=== PATIENT | female | born 1965 | race Caucasian/White ===

== ENCOUNTER 2018-05-29 12:07 | Emergency (ER) | payer OTHER, SELFPAY ==
[2018-05-29 12:08] VITALS: BP 136/79; PULSE 58; RESP 16; TEMP 36.6; O2SAT 100; BMI 29.3
--- NOTE | 2018-05-29 12:26 | RAD_ITS ---
STUDY: X-RAY CHEST REASON FOR EXAM: Female, 52 years old. Vertigo. TECHNIQUE: Single AP portable upright view of the chest. COMPARISON: None. FINDINGS: The lungs are clear and expanded. There is no demonstrated pleural abnormality. Normal size heart. Normal mediastinum and sarah. Normal visualized pulmonary arteries. Normal visualized aortic arch and descending thoracic aorta. Normal visualized thoracic spine. Normal visualized ribs, clavicles, and shoulders. There is no demonstrated abnormality of the visualized soft tissue structures of the upper abdomen. RAD/Chest 1 View (Portable) IMPRESSION: Normal x-ray examination of the chest. Electronically Signed: Julio Rodrigues MD at 14:56 EST , Service support ,
--- NOTE | 2018-05-29 12:26 | CT_ITS ---
STUDY: CT BRAIN WITHOUT CONTRAST REASON FOR EXAM: Female, 52 years old. DIZZY SINCE LAST NIGHT, HX-VERTIGO. RADIATION DOSAGE (If Supplied By Facility): CTDIvol = ( 44.99 ) mGy, DLP = ( 745.49 ) mGycm TECHNIQUE: Transaxial CT imaging of the brain was performed without administration of intravenous contrast material. Individualized dose optimization techniques were used for this CT. COMPARISON: None. FINDINGS: Normal soft tissue structures. Normal calvarium. Normal size ventricles and extra-axial spaces for the patient's age. Normal white matter tracts of the cerebral hemispheres. Normal basal ganglia and thalami. Normal brainstem. Normal cerebellum. There is no intracranial hemorrhage. There are no findings of an acute ischemic infarction. Normal visualized paranasal sinuses. CT/Brain/Head without Contrast IMPRESSION: Normal unenhanced CT scan of the brain. Electronically Signed: Raeann Payne MD at 13:51 EST Tel , Service support ,
--- NOTE | 2018-05-29 12:26 | EKG12_ITS ---
Test Reason : DIZZINESS Blood Pressure : / mmHG Vent. Rate : 057 BPM Atrial Rate : 057 BPM P-R Int : 144 ms QRS Dur : 086 ms QT Int : 434 ms P-R-T Axes : 023 057 054 degrees QTc Int : 422 ms Sinus bradycardia Otherwise normal ECG Confirmed by ERROL PEOPLES, MANDY ([id number]), food editor LOTTIE HO ([id number] on 06/01/2018 2:54:25 PM Referred By: DC Confirmed By:MANDY NORTON MD
--- NOTE | 2018-05-29 12:30 | ED.DCSUM_ITS ---
- ER Visit Summary Date of Service: 05/29/18 Chief Complaint: Vertigo History of Present Illness: The patient is a 52 F with what she describes as vertigo. It feels like something is pulling her head back. This has been going on in the past and she was treated with meclizine. She tried some last night an d then this morning, but it is not helping. No other significant related symptoms. She does have a family history of stroke. No history of vision changes, facial droop, speech changes, weakness, or numbness. No chest pain. No nausea or vomiting. Physical Examination: Afebrile and vital signs unremarkable. Patient is in no acute distress. Alert and oriented. Head and neck atraumatic. HEENT exam unremarkable. Heart regular. Lungs clear. Skin appears normal. Normal cranial nerve testing. Normal strength and sensation. Normal gait and cerebellar testing. Test Results: CT brain, labs, chest x-ray, and EKG pending. Emergency Department Course and Treatment: Patient treated with meclizine while awaiting results. Workup is unremarkable. MRI was performed to rule out stroke. Results are pending and will be checked by the oncoming doctor. If normal, the patient will be discharged on meclizine to follow-up with ENT. Treatment Plan: As above Disposition: Discharge pending MRI Impression: 1. Vertigo This note was generated with [employer] dictation software. It may contain incorrect words, spelling, and punctuation that were not noted in review of the chart prior to signing ED Disposition - Plan for ED Patient: Chief Complaint: Dizziness Referrals: Deandre Mohan DO [Primary Care Provider] -
[2018-05-29] MEDS: Meclizine HCl 25 MG Tablet PO (12:42)
[2018-05-29 12:45] VITALS: O2SAT 100
[2018-05-29 12:54] LABS: Absolute Lymphocyte Count 1.61 X10^3/ul (0.83-4.51); Absolute Neutrophil Count 5.3 X10^3/uL (2.0-7.7); Basophil# 0.02 X10^3/uL; Basophil% 0.3 % (0-1); Eosinophil# 0.04 X10^3/uL; Eosinophils% 0.5 % (0-5); Hematocrit 44.6 % (37-47); Hemoglobin 15.1 g/dl (12.0-15.0); Lymphocyte # 1.61 X10^3/ul (4.0); Lymphocyte % 21.6 % (19-41); Mean Corp Hgb Conc 33.9 g/gl (32-36); Mean Corpuscular Hgb 28.5 pg (27.0-32.0); Mean Corpuscular Volume 84.2 fL (81-99); Monocyte# 0.51 X10^3/uL; Monocyte% 6.8 % (0-10); Neutrophil # 5.28 X10^3/uL (2.7-7.7); Neutrophil % 70.8 % (47-70); Platelet Count 213 K/mm3 (150-450); RBC Distribution Width CV 13.2 % (11.6-14.6); RBC Distribution Width SD 40.2 fl (35.1-43.9); White Blood Count 7.5 K/mm3 (4.4-11.0)
[2018-05-29 12:55] LABS: POSITIVE COUNT NO; POSITIVE DIFFERENTIAL NO; POSITIVE MORPHOLOGY NO
[2018-05-29 13:07] LABS: Anion Gap 5 (5-15); BUN 14 mg/dL (7-18); BUN/Creat Ratio 18.6 RATIO (10-20); Calcium,Total 8.7 mg/dL (8.5-10.1); Chloride 105 mmol/L (98-107); Creatinine, Serum 0.75 mg/dL (0.55-1.02); EST Glomerular Filtration Rate 86 mL/min (>60); Est Glom Filt Rate - Afr Amer 104 mL/min (>60); Estimated Creatinine Clearance 75.77 ml/min; Glucose 136 mg/dL (74-106); Potassium 3.8 mmol/L (3.5-5.1); Sodium Level 139 mmol/L (136-145)
--- NOTE | 2018-05-29 13:27 | MRI_ITS ---
STUDY: MRA NECK WITH AND WITHOUT CONTRAST REASON FOR EXAM: Female, 52 years old. Dizziness since last evening. TECHNIQUE: 3-D lsew-xb-zygnrt (TOF) imaging was performed in an 1.5 T MRI scanner. 8 ml of Gadavist was administered for the contrast enhanced images. Several images are limited by patient motion. COMPARISON: None. FINDINGS: RIGHT CAROTID ARTERIES: Normal right common carotid artery (CCA). There is mild atherosclerotic plaque formation with minimal narrowing of the right carotid bulb. Normal origin of the right internal carotid (ICA) artery without a hemodynamically significant stenosis. Normal visualized cervical portion of the right internal carotid artery. Normal origin of the right external carotid artery (ECA). LEFT CAROTID ARTERIES: Normal left common carotid artery (CCA). There is mild atherosclerotic plaque formation with minimal narrowing of the left carotid bulb. Normal origin of the left internal carotid (ICA) artery without a hemodynamically significant stenosis. Normal visualized cervical portion of the left internal carotid artery. Normal origin of the left external carotid artery (ECA). VERTEBRAL ARTERIES: Normal antegrade flow within the bilateral vertebral artery without a hemodynamically significant stenosis. MRI/MRA Neck WITH and W/O Contrast IMPRESSION: No MRI evidence for hemodynamically significant stenosis of the major arteries of the neck. Electronically Signed: Samanta Dorsey MD at 17:40 EST , Service support ,
--- NOTE | 2018-05-29 13:27 | MRI_ITS ---
STUDY: MRA OF THE HEAD WITHOUT CONTRAST REASON FOR EXAM: Female, 52 years old. Dizziness since last evening. TECHNIQUE: 3-D uzwg-fq-itwmdy (TOF) imaging was performed with MIPs. The study was performed unenhanced. COMPARISON: None. FINDINGS: Normal bilateral petrous carotid arteries. There is elongation and tortuosity of the right cavernous carotid artery, without a demonstrated hemodynamically significant stenosis. There is elongation and tortuosity of the left cavernous carotid artery, without a demonstrated hemodynamically significant stenosis. Normal right A1 segments of the anterior cerebral artery. Normal left A1 segments of the anterior cerebral artery. Normal intact anterior communicating artery (ACOM). Normal bilateral A2 segments of the anterior cerebral arteries. There is irregularity of the right M1 and M2 branches with minimal luminal narrowing, suggesting atherosclerotic plaque formation, without an occlusion. There is irregularity of the left M1 and M2 branches with minimal luminal narrowing, suggesting atherosclerotic plaque formation, without an occlusion. Normal right posterior communicating artery (PCOM). There is non-visualization of the left posterior communicating artery (PCOM). Normal bilateral vertebral arteries. Normal basilar artery with a normal basilar bifurcation. The visualized bilateral superior cerebellar (SCA) arteries are normal. Normal bilateral P1, P2 and visualized P3 segments of the posterior cerebral arteries. There is no demonstrated aneurysm of the ute of [place]. There is no major vessel occlusion or hemodynamically significant stenosis. There is no demonstrated abnormality of the visualized brain. MRI/MRA Head ONLY without Contrast IMPRESSION: 1. No MRA evidence for hemodynamically significant stenosis or aneurysm. 2. On the MIPS images, however, there is apparent truncation of one of the left M2 segments. This is probably artifactual. Electronically Signed: Samanta Dorsey MD at 17:18 EST , Service support ,
--- NOTE | 2018-05-29 13:27 | MRI_ITS ---
STUDY: MRI BRAIN WITHOUT CONTRAST REASON FOR EXAM: Female, 52 years old. Vertigo and dizziness since last evening. TECHNIQUE: Standardized multiplanar fat and water weighted pulse sequences were obtained. Several images are limited by patient motion. COMPARISON: CT of the head dated May 29, 2018. FINDINGS: Normal size of the ventricles and extra-axial spaces for the patient's age. Normal white matter tracts of the supratentorial brain. There is no evidence for recent intracranial ischemia or other cause of cytotoxic edema on diffusion weighted imaging (DWI). Normal T2* images of the brain without demonstrated susceptibility artifact. There is no demonstrated hemosiderin stain. Normal bilateral basal ganglia. Normal thalami. There is no extra-axial fluid accumulation. Normal flow voids within the major intracranial circulation suggesting patency by spin echo criteria. Normal sella turcica, pituitary gland, infundibular stalk, optic chiasm and hypothalamus. Normal tectal plate and pineal gland. Normal midbrain, coy and medulla. Normal cerebellum. Normal basal cisterns. Normal bilateral temporal bones. Normal bilateral internal auditory canals. No demonstrated orbital abnormality, within the constraints of a routine brain study. Normal visualized paranasal sinuses. Normal calvarium and skull base. Normal visualized soft tissue structures. Normal visualized upper cervical spine. MRI/Brain without Contrast IMPRESSION: 1. No MRI evidence for acute infarct. 2. Technically limited study due to patient motion. Electronically Signed: Samanta Dorsey MD at 17:24 EST , Service support ,
[2018-05-29 14:44] VITALS: RESP 14
--- NOTE | 2018-05-29 16:00 | ED.DEP ---
ED Disposition - Plan for ED Patient: Chief Complaint: Dizziness Instructions: ED Vertigo Unspecified Prescriptions: Meclizine HCl 25 mg PO TID PRN PRN #20 tab PRN Reason: Vertigo Referrals: Damian Gray MD [STAFF PHYSICIAN] -
[2018-05-29 16:49] VITALS: BP 105/72; PULSE 66; RESP 18; O2SAT 100
[2018-05-29 18:00] VITALS: BP 127/70; PULSE 68; RESP 16; O2SAT 100
[2018-05-29 18:13] VITALS: BP 127/70; PULSE 65; RESP 16; O2SAT 100
--- OUTSIDE RECORDS SUMMARY | 2018-07-23 20:11 | XMS RPT_ITS ---
:1965 Author Organization [facility] Care Team Providers Name Role Phone DEANDRE GRANGER Referring Unavailable DEANDRE GRANGER Attending Unavailable Deandre Granger Primary Care Unavailable Arben Campos Attending Unavailable PROBLEMS PROBLEMS DATE TYPE CONDITION / CODE ATTENDING STATUS SOURCE 04/16/2018 Active Other custodial NA Active [facility] (current) drug [facility] therapy / Repository Z79.899(ICD-10) PROCEDURES PROCEDURES No Procedure Records FoundRESULTS RESULTS 12 LEAD ELECTROCARDIOGRAM Observed: 06/01/2018 Status: F Source: [place] 2:54 PM [facility] [place] [place] REPOSITORY [facility] Cardiovascular Services [address] [place] [address] 12 Lead EKG 05/29/18 1238 MR#: [id number] Acct: [id number] Name: EULALIA GUERRIER Rep #: [id number] : 1965 52 From: Duke Norton MD Attending Dr: Status: DEP ER Ordering Dr: Arben Campos MD Date: 05/29/18 Location: ED Sex: F C Admitted: Test Reason : DIZZINESS Blood Pressure : / mmHG Vent. Rate : 057 BPM Atrial Rate : 057 BPM P-R Int : 144 ms QRS Dur : 086 ms QT Int : 434 ms P-R-T Axes : 023 057 054 degrees QTc Int : 422 ms Sinus bradycardia Otherwise normal ECG Confirmed by ERROL PEOPLES, DUKE ([id number]), industrial editor LOTTIE DORSEY ([id number]) on 06/01/2018 2:54:25 PM Referred By: DC Confirmed By:DUKE NORTON MD 06/01/18 1454 Date Duke Norton MD CC: Arben Campos MD; Deandre Raza DO Signed EMERGENCY DEPARTMENT Observed: 05/29/2018 Status: C Source: [place] SUMMARY 6:07 PM [facility] [place] [place] REPOSITORY [facility] Medical Records Department [address] [place] [address] Emergency Department Summary 05/29/18 1228 MR#: [id number] Acct: [id number] Name: EULALIA GUERRIER Rep #: [id number] : 1965 52 From: Arben Campos MD PCP: Deandre Raza DO Status: REG ER ADDENDUM by Kailee Ramos MD on 05/29/18 at 1807 Patient was signed out to me pending MRI and MRAs. The studies returned unremarkable. On repeat evaluation patient is sitting upright in bed. She does report that she is feeling better. Prescription for meclizine has been written for home. She will follow with her primary care physician. Disposition: Discharge Impression: Vertigo, improved Date Kailee Ramos MD cc: Deandre Raza DO * Addendum - ER Visit Summary Date of Service: 05/29/18 Chief Complaint: Vertigo History of Present Illness: The patient is a 52 F with what she describes as vertigo. It feels like something is pulling her head back. This has been going on in the past and she was treated with meclizine. She tried some last night and then this morning, but it is not helping. No other significant related symptoms. She does have a family history of stroke. No history of vision changes, facial droop, speech changes, weakness, or numbness. No chest pain. No nausea or vomiting. Physical Examination: Afebrile and vital signs unremarkable. Patient is in no acute distress. Alert and oriented. Head and neck atraumatic. HEENT exam unremarkable. Heart regular. Lungs clear. Skin appears normal. Normal cranial nerve testing. Normal strength and sensation. Normal gait and cerebellar testing. Test Results: CT brain, labs, chest x-ray, and EKG pending. Emergency Department Course and Treatment: Patient treated with meclizine while awaiting results. Workup is unremarkable. MRI was performed to rule out stroke. Results are pending and will be checked by the oncoming doctor. If normal, the patient will be discharged on meclizine to follow-up with ENT. Treatment Plan: As above Disposition: Discharge pending MRI Impression: 1. Vertigo This note was generated with [employer] software. It may contain incorrect words, spelling, and punctuation that were not noted in review of the chart prior to signing ED Disposition - Plan for ED Patient: Chief Complaint: Dizziness Referrals: Deandre Granger DO [Primary Care Provider] - What to do if you have Problems For any increased pain, shortness of breath, bleeding, nausea or vomiting, chest pain, or any unexpected problems, contact your Primary Care Provider. Call [facility] ([phone]) or report to the closest Emergency Room. Call 911 if necessary. 05/29/18 1615 <Electronically signed by Arben Campos MD> Date Arben Campos MD Cosigner Signature (If Indicated): Date CC: Deandre Raza DO DISCHARGE INSTRUCTION Observed: 05/29/2018 Status: F Source: [place] 4:15 PM [facility] [place] REPOSITORY [facility] Medical Records Department [address] [place] [address] Discharge Instruction 05/29/18 1600 MR#: [id number] Acct: [id number] Name: TRISTAEULALIA M Rep #: [id number] : 1965 52 From: Arben Campos MD PCP: Deandre Raza DO Status: REG ER ED Disposition - Plan for ED Patient: Chief Complaint: Dizziness Instructions: ED Vertigo Unspecified Prescriptions: Meclizine HCl 25 mg PO TID PRN PRN #20 tab PRN Reason: Vertigo Referrals: Damian Gray MD [STAFF PHYSICIAN] - What to do if you have Problems For any increased pain, shortness of breath, bleeding, nausea or vomiting, chest pain, or any unexpected problems, contact your Primary Care Provider. Call [employer] Registry ([phone]) or report to the closest Emergency Room. Call 911 if necessary. 05/29/18 1615 <Electronically signed by Arben Camops MD> Date Arben Campos MD Cosigner Signature (If Indicated): Date CC: Deandre Raza DO MRA HEAD ONLY WITHOUT Observed: 05/29/2018 Status: F Source: [place] CONTRAST 1:28 PM [facility] [place] [place] REPOSITORY [facility] Imaging Services [address] [place] [address] MRA Head ONLY without Contrast MR#: [id number] Acct: [id number] Name: EULALIA GUERRIER Rep #: [id number] : 1965 F 52 From: Samanta Dorsey MD PCP: Deandre Raza DO Status: REG ER Study: MRA Head ONLY without Contrast Date of Exam: 05/29/18 Exam# [id number] Ordering Dr: Arben Campos MD STUDY: MRA OF THE HEAD WITHOUT CONTRAST REASON FOR EXAM: Female, 52 years old. Dizziness since last evening. TECHNIQUE: 3-D nqvg-sf-upcmxo (TOF) imaging was performed with MIPs. The study was performed unenhanced. COMPARISON: None. FINDINGS: Normal bilateral petrous carotid arteries. There is elongation and tortuosity of the right cavernous carotid artery, without a demonstrated hemodynamically significant stenosis. There is elongation and tortuosity of the left cavernous carotid artery, without a demonstrated hemodynamically significant stenosis. Normal right A1 segments of the anterior cerebral artery. Normal left A1 segments of the anterior cerebral artery. Normal intact anterior communicating artery (ACOM). Normal bilateral A2 segments of the anterior cerebral arteries. There is irregularity of the right M1 and M2 branches with minimal luminal narrowing, suggesting atherosclerotic plaque formation, without an occlusion. There is irregularity of the left M1 and M2 branches with minimal luminal narrowing, suggesting atherosclerotic plaque formation, without an occlusion. Normal right posterior communicating artery (PCOM). There is non-visualization of the left posterior communicating artery (PCOM). Normal bilateral vertebral arteries. Normal basilar artery with a normal basilar bifurcation. The visualized bilateral superior cerebellar (SCA) arteries are normal. Normal bilateral P1, P2 and visualized P3 segments of the posterior cerebral arteries. There is no demonstrated aneurysm of the [place]. There is no major vessel occlusion or hemodynamically significant stenosis. There is no demonstrated abnormality of the visualized brain. MRI/MRA Head ONLY without Contrast IMPRESSION: 1. No MRA evidence for hemodynamically significant stenosis or aneurysm. 2. On the MIPS images, however, there is apparent truncation of one of the left M2 segments. This is probably artifactual. Electronically Signed: Samanta Dorsey MD at 17:18 EST , Service support , CC: Arben Campos MD; Deandre Raza DO Plastic Surgeon: Signed BRAIN WITHOUT Observed: 05/29/2018 Status: F Source: [place] CONTR[place] 1:28 PM [facility] [place] REPOSITORY [facility] Imaging Services [address] [place] [address] Brain without Contrast MR#: [id number] Acct: [id number] Name: EULALIA GUERRIER Rep #: [id number] : 1965 F 52 From: Samanta Dorsey MD PCP: Deandre Raza DO Status: REG ER Study: Brain without Contrast Date of Exam: 05/29/18 Exam# [id number] Ordering Dr: Arben Campos MD STUDY: MRI BRAIN WITHOUT CONTRAST REASON FOR EXAM: Female, 52 years old. Vertigo and dizziness since last evening. TECHNIQUE: Standardized multiplanar fat and water weighted pulse sequences were obtained. Several images are limited by patient motion. COMPARISON: CT of the head dated May 29, 2018. FINDINGS: Normal size of the ventricles and extra-axial spaces for the patient's age. Normal white matter tracts of the supratentorial brain. There is no evidence for recent intracranial ischemia or other cause of cytotoxic edema on diffusion weighted imaging (DWI). Normal T2* images of the brain without demonstrated susceptibility artifact. There is no demonstrated hemosiderin stain. Normal bilateral basal ganglia. Normal thalami. There is no extra-axial fluid accumulation. Normal flow voids within the major intracranial circulation suggesting patency by spin echo criteria. Normal sella turcica, pituitary gland, infundibular stalk, optic chiasm and hypothalamus. Normal tectal plate and pineal gland. Normal midbrain, coy and medulla. Normal cerebellum. Normal basal cisterns. Normal bilateral temporal bones. Normal bilateral internal auditory canals. No demonstrated orbital abnormality, within the constraints of a routine brain study. Normal visualized paranasal sinuses. Normal calvarium and skull base. Normal visualized soft tissue structures. Normal visualized upper cervical spine. MRI/Brain without Contrast IMPRESSION: 1. No MRI evidence for acute infarct. 2. Technically limited study due to patient motion. Electronically Signed: Samanta Dorsey MD at 17:24 EST , Service support , CC: Arben Campos MD; Deandre Raza DO Plastic Surgeon: Signed MRA NECK WITH AND W/O Observed: 05/29/2018 Status: F Source: [place] CONTRAST 1:28 PM [facility] [place] [place] REPOSITORY [facility] Imaging Services [address] [place] [address] MRA Neck WITH and W/O Contrast MR#: [id number] Acct: [id number] Name: EULALIA GUERRIER Rep #: [id number] : 1965 F 52 From: Samanta Dorsey MD PCP: Deandre Raza, DO Status: REG ER Study: MRA Neck WITH and W/O Contrast Date of Exam: 05/29/18 Exam# [id number] Ordering Dr: Arben Campos MD STUDY: MRA NECK WITH AND WITHOUT CONTRAST REASON FOR EXAM: Female, 52 years old. Dizziness since last evening. TECHNIQUE: 3-D lyiq-hn-vxqukt (TOF) imaging was performed in an 1.5 T MRI scanner. 8 ml of Gadavist was administered for the contrast enhanced images. Several images are limited by patient motion. COMPARISON: None. FINDINGS: RIGHT CAROTID ARTERIES: Normal right common carotid artery (CCA). There is mild atherosclerotic plaque formation with minimal narrowing of the right carotid bulb. Normal origin of the right internal carotid (ICA) artery without a hemodynamically significant stenosis. Normal visualized cervical portion of the right internal carotid artery. Normal origin of the right external carotid artery (ECA). LEFT CAROTID ARTERIES: Normal left common carotid artery (CCA). There is mild atherosclerotic plaque formation with minimal narrowing of the left carotid bulb. Normal origin of the left internal carotid (ICA) artery without a hemodynamically significant stenosis. Normal visualized cervical portion of the left internal carotid artery. Normal origin of the left external carotid artery (ECA). VERTEBRAL ARTERIES: Normal antegrade flow within the bilateral vertebral artery without a hemodynamically significant stenosis. MRI/MRA Neck WITH and W/O Contrast IMPRESSION: No MRI evidence for hemodynamically significant stenosis of the major arteries of the neck. Electronically Signed: Samanta Dorsey MD at 17:40 EST , Service support , CC: Arben Campos MD; Deandre Raza DO Plastic Surgeon: Signed CBC W/DIFF, AUTOMATED Collected: 05/29/2018 Status: F Source: [place] 12:42 PM [facility] [place] [place] REPOSITORY TYPE CODE TESTS RESULT OUT OF RANGE REFERENCE UNITS LAB L100.1000 4.4-11.0 K/mm3 Normal WBC 7.5 LAB L100.1200 4.2-5.4 M/mm3 Normal RBC 5.30 LAB L100.1300 12.0-15.0 g/dl High HGB 15.1 LAB L100.1400 37-47 % Normal HCT 44.6 LAB L100.1500 81-99 fL Normal MCV 84.2 LAB L100.1600 27.0-32.0 pg Normal MCH 28.5 LAB L100.1700 32-36 g/gl Normal MCHC 33.9 LAB L100.1810 11.6-14.6 % Normal RDW CV 13.2 LAB L100.1820 35.1-43.9 fl Normal RDW SD 40.2 LAB L100.1900 150-450 K/mm3 Normal PLT 213 LAB L100.2000 6.2-12.0 fl Normal MPV 10.0 LAB L100.2100 47-70 % High NEUT% 70.8 LAB L100.2200 19-41 % Normal LY% 21.6 LAB L100.2300 0-10 % Normal MONO% 6.8 LAB L100.2400 0-5 % Normal EO% 0.5 LAB L100.2500 0-1 % Normal BASO% 0.3 LAB L100.2550 0.0-0.9 % Normal IM GRAN % 0.000 Result Comment: IG% - Immature Granulocytes (promyelocytes, myelocytes and metamyelocytes) > 1% indicates that a LEFT SHIFT is Present. LAB L100.2620 2.0-7.7 X10 3/uL Normal Absolute Neut 5.3 LAB L100.2720 0.83-4.51 X10 3/ul Normal Absolute Lymph 1.61 Performed By: #### L100.0100 #### [facility] [address] [place], [place], [id number] BASIC METABOLIC Collected: 05/29/2018 Status: F Source: [place] PROFILE ([facility]) 12:42 PM [facility] [place] [place] REPOSITORY TYPE CODE TESTS RESULT OUT OF RANGE REFERENCE UNITS LAB L501.0100 74-106 mg/dL High GLU 136 Result Comment: Fasting Glucose result greater than or equal to 126 mg/dL suggests DIABETES MELLITUS per A.D.A. criteria. Please note revised GLUCOSE reference range effective 2017. LAB L501.1000 7-18 mg/dL Normal BUN 14 LAB L501.1100 0.55-1.02 mg/dL Normal CREAT,SERUM 0.75 Result Comment: The validity of the calculated GFR AND GFRAA in patients over 70 years has not been determined. Clinical correlation is essential. LAB L501.1110 >60 mL/min Normal EST GFR 86 Result Comment: Non- GFR Calc LAB L501.1115 >60 mL/min Normal EST GFR - AA 104 Result Comment: GFR Calc LAB L501.1255 ml/min Normal Estimated CRCL 75.77 LAB L501.1300 10-20 RATIO Normal BUN/CRE 18.6 LAB L501.2200 8.5-10 mg/dL Normal .1 CA 8.7 LAB L501.5300 136-14 mmol/L Normal 5 NA 139 LAB L501.5600 3.5-5. mmol/L Normal 1 K 3.8 LAB L501.5900 98-107 mmol/L Normal CL 105 LAB L501.6100 21.0-3 mmol/L Normal 2.0 CO2 29.0 LAB L501.6200 5-15 Normal GAP 5 Performed By: #### L500.2500, L501.4010 #### [facility] [address] [place], [address] TROPONIN-I Collected: 05/29/2018 Status: F Source: [place] 12:42 PM [facility] [place] [place] REPOSITORY TYPE CODE TESTS RESULT OUT OF RANGE REFERENCE UNITS LAB L501.4010 <0.045 ng/mL Normal < 0.015 TROPONIN-I Result Comment: TROPONIN-I EXPECTED VALUES <0.045 Negative 0.045 - 0.590 Consistent with Cardiac Damage > OR = 0.600 Critical Value Not every elevated troponin is indicative of KS. These values should be used with clinical judgement in examining the patient's clinical picture for diagnosis. To establish a diagnosis of KS versus myocardial injury, there must be a demonstrated rise and/or fall in the troponin values, in addition to ischemic symptoms, EKG changes, new regional wall motion abnormality, and/or angiographical evidence. PLEASE NOTE: REFERENCE RANGES EDITED 17 Performed By: #### L500.2500, L501.4010 #### [facility] [address] [place], [address] BRAIN/HEAD WITHOUT Observed: 05/29/2018 Status: F Source: [place] CONTRAST 12:28 PM [facility] [place] REPOSITORY [facility] Imaging Services [address] [place] [address] Brain/Head without Contrast MR#: [id number] Acct: [id number] Name: EULALIA GUERRIER Rep #: [id number] : 1965 F 52 From: Raeann Payne PCP: Deandre Raza DO Status: REG ER Study: Brain/Head without Contrast Date of Exam: 05/29/18 Exam# [id number] Ordering Dr: Arben Campos MD STUDY: CT BRAIN WITHOUT CONTRAST REASON FOR EXAM: Female, 52 years old. DIZZY SINCE LAST NIGHT, HX-VERTIGO. RADIATION DOSAGE (If Supplied By Facility): CTDIvol = ( 44.99 ) mGy, DLP = ( 745.49 ) mGycm TECHNIQUE: Transaxial CT imaging of the brain was performed without administration of intravenous contrast material. Individualized dose optimization techniques were used for this CT. COMPARISON: None. FINDINGS: Normal soft tissue structures. Normal calvarium. Normal size ventricles and extra-axial spaces for the patient's age. Normal white matter tracts of the cerebral hemispheres. Normal basal ganglia and thalami. Normal brainstem. Normal cerebellum. There is no intracranial hemorrhage. There are no findings of an acute ischemic infarction. Normal visualized paranasal sinuses. CT/Brain/Head without Contrast IMPRESSION: Normal unenhanced CT scan of the brain. Electronically Signed: Raeann Payne MD at 13:51 EST Tel , Service support , CC: Arben Campos MD; Deandre Raza DO Plastic Surgeon: Signed CHEST 1 VIEW Observed: 05/29/2018 Status: F Source: [place] (PORTABLE) 12:28 PM [facility] [place] [place] REPOSITORY [facility] Imaging Services [address] [place] [address] Chest 1 View (Portable) MR#: [id number] Acct: [id number] Name: EULALIA GUERRIER Rep #: [id number] : 1965 F 52 From: David Rodrigues MD PCP: Deandre Raza DO Status: REG ER Study: Chest 1 View (Portable) Date of Exam: 05/29/18 Exam# [id number] Ordering Dr: Arben Campos MD STUDY: X-RAY CHEST REASON FOR EXAM: Female, 52 years old. Vertigo. TECHNIQUE: Single AP portable upright view of the chest. COMPARISON: None. FINDINGS: The lungs are clear and expanded. There is no demonstrated pleural abnormality. Normal size heart. Normal mediastinum and sarah. Normal visualized pulmonary arteries. Normal visualized aortic arch and descending thoracic aorta. Normal visualized thoracic spine. Normal visualized ribs, clavicles, and shoulders. There is no demonstrated abnormality of the visualized soft tissue structures of the upper abdomen. RAD/Chest 1 View (Portable) IMPRESSION: Normal x-ray examination of the chest. Electronically Signed: Julio Rodrigues MD at 14:56 EST , Service support , CC: Arben Campos MD; Deandre Raza DO Plastic Surgeon: Signed PROGRESS Observed: 05/29/2018 Status: COMPLETED Source: [place] 11:14 AM [facility] REPOSITORY HNO ID: [id number] Author: Hafsa Dobson Service: (none) Author Type: Nurse Practitioner Type: Progress Notes Filed: 05/29/2018 12:12 PM Note Text: Subjective The history is provided by the patient. No foreign language teacher was used. HPI Eulalia Guerrier is a 52 year old female who presents today for CC of feeling of the room is spinning, states head just feels weird, like it is sinking into a pillow. She has a history of vertigo, was treated a year ago with meclizine and resolved. Onset/Duration: Past 24-36 hours. Alleviating/Treatment: Meclazine x 2 without releif. Uses flonase daily Aggravating: Movement, even lying down no relief. Patient denies and LOC, change in vision, slurred speech, facial drooping or change in hearing. BP 118/80 Pulse 63 Temp 36.4 ?C (97.6 ?F) (Tympanic) Resp 14 Wt 77.7 kg (171 lb 3.2 oz) LMP 02/11/2016 BMI 29.39 kg/m? PAST MEDICAL HISTORY Diagnosis Date - ACNE - Allyson's thyroiditis 05/2014 - Hyperlipidemia 2015 I have confirmed and edited as necessary, the [facility] Review of Systems Constitutional: Positive for malaise/fatigue. Negative for chills and fever. HENT: Positive for ear pain (pressure). Negative for sinus pain. Respiratory: Negative for cough and stridor. Neurological: Positive for dizziness. All other systems reviewed and are negative. Objective Physical Exam Constitutional: She is well-developed, well-nourished, and in no distress. HENT: Head: Normocephalic and atraumatic. Right Ear: Tympanic membrane, external ear and ear canal normal. Tympanic membrane is not injected, not erythematous, not retracted and not bulging. No middle ear effusion. Left Ear: Tympanic membrane, external ear and ear canal normal. Tympanic membrane is not injected, not erythematous, not retracted and not bulging. No middle ear effusion. Nose: Nose normal. No mucosal edema or rhinorrhea. Right sinus exhibits no maxillary sinus tenderness and no frontal sinus tenderness. Left sinus exhibits no maxillary sinus tenderness and no frontal sinus tenderness. Mouth/Throat: Uvula is midline, oropharynx is clear and moist and mucous membranes are normal. Unaable to see TM, ear lavage done, TM normal ear canal small, does not appear to be bulging bilaterally Cardiovascular: Normal rate and regular rhythm. Pulmonary/Chest: Effort normal and breath sounds normal. Neurological: She has normal sensation, normal strength, normal reflexes and intact cranial nerves. She is not disoriented. She displays normal reflexes. No cranial nerve deficit or sensory deficit. She has a normal Straight Leg Raise Test and a normal Xluxbq-Gdwv-Yledvk Test. Gait normal. Negative clayton mello pike test Nursing note and vitals reviewed. ASSESSMENT/PLAN: 1. Dizziness - ICD9: 780.4, ICD10: R42 MDM: Exam benign. No ear exam abnormality, negative neurologic testing. Unable to find any reason for dizziness. Due to lack of further investigative test, recommend patient go to ER for further treatment. Patient and in agreement of plan. Declines squad, able to transport. ER notified, snap shot sent. 2. Bilateral impacted cerumen - ICD9: 380.4, ICD10: H61.23 Ear lavage done Use may use OTC Debrox or Cerumenex once a month for maintenance. Avoid inserting Q-tips into your ears. Follow up with your PCP as needed. Diagnosis and treatment plan were discussed and questions were answered to the patient's satisfaction. Pt acknowledged understanding of concepts and follow up plan. Specific signs and symptoms that would indicate the need for higher level of care were discussed in detail warranting prompt ER evaluation. Hafsa Dobson APRN.ELIZABETH SERNAOV Observed: 05/29/2018 Status: COMPLETED Source: [place] 11:00 AM [facility] REPOSITORY Office Visit ([facility]STR) EULALIA GUERRIER ([id number]) 1965 F Date Time Provider Department 05/29/18 11:00 AM HAFSA DOBSON (TUBE TESTER) [facility] During your visit today, we recorded the following information about you: Temperature Pulse Respiration Blood pressure 97.6 degrees 63/minute 14/minute 118/80 Weight 77.7 kg Hafsa Dobson APRN.CNP 05/29/2018 12:12 PM Signed Subjective The history is provided by the patient. No foreign language teacher was used. HPI Eulalia Guerrier is a 52 year old female who presents today for CC of feeling of the room is spinning, states head just feels weird, like it is sinking into a pillow. She has a history of vertigo, was treated a year ago with meclizine and resolved. Onset/Duration: Past 24-36 hours. Alleviating/Treatment: Meclazine x 2 without releif. Uses flonase daily Aggravating: Movement, even lying down no relief. Patient denies and LOC, change in vision, slurred speech, facial drooping or change in hearing. BP 118/80 Pulse 63 Temp 36.4 ?C (97.6 ?F) (Tympanic) Resp 14 Wt 77.7 kg (171 lb 3.2 oz) LMP 02/11/2016 BMI 29.39 kg/m? PAST MEDICAL HISTORY Diagnosis Date - ACNE - Allyson's thyroiditis 05/2014 - Hyperlipidemia 2015 I have confirmed and edited as necessary, the [facility] Review of Systems Constitutional: Positive for malaise/fatigue. Negative for chills and fever. HENT: Positive for ear pain (pressure). Negative for sinus pain. Respiratory: Negative for cough and stridor. Neurological: Positive for dizziness. All other systems reviewed and are negative. Objective Physical Exam Constitutional: She is well-developed, well-nourished, and in no distress. HENT: Head: Normocephalic and atraumatic. Right Ear: Tympanic membrane, external ear and ear canal normal. Tympanic membrane is not injected, not erythematous, not retracted and not bulging. No middle ear effusion. Left Ear: Tympanic membrane, external ear and ear canal normal. Tympanic membrane is not injected, not erythematous, not retracted and not bulging. No middle ear effusion. Nose: Nose normal. No mucosal edema or rhinorrhea. Right sinus exhibits no maxillary sinus tenderness and no frontal sinus tenderness. Left sinus exhibits no maxillary sinus tenderness and no frontal sinus tenderness. Mouth/Throat: Uvula is midline, oropharynx is clear and moist and mucous membranes are normal. Unaable to see TM, ear lavage done, TM normal ear canal small, does not appear to be bulging bilaterally Cardiovascular: Normal rate and regular rhythm. Pulmonary/Chest: Effort normal and breath sounds normal. Neurological: She has normal sensation, normal strength, normal reflexes and intact cranial nerves. She is not disoriented. She displays normal reflexes. No cranial nerve deficit or sensory deficit. She has a normal Straight Leg Raise Test and a normal Uwbigj-Hunw-Eywusa Test. Gait normal. Negative clayton mello pike test Nursing note and vitals reviewed. ASSESSMENT/PLAN: 1. Dizziness - ICD9: 780.4, ICD10: R42 MDM: Exam benign. No ear exam abnormality, negative neurologic testing. Unable to find any reason for dizziness. Due to lack of further investigative test, recommend patient go to ER for further treatment. Patient and in agreement of plan. Declines squad, able to transport. ER notified, snap shot sent. 2. Bilateral impacted cerumen - ICD9: 380.4, ICD10: H61.23 Ear lavage done Use may use OTC Debrox or Cerumenex once a month for maintenance. Avoid inserting Q-tips into your ears. Follow up with your PCP as needed. Diagnosis and treatment plan were discussed and questions were answered to the patient's satisfaction. Pt acknowledged understanding of concepts and follow up plan. Specific signs and symptoms that would indicate the need for higher level of care were discussed in detail warranting prompt ER evaluation. Hafsa Dobson APRN.TUBE TESTER Referring Provider: SELF [200] Allergies As of Date: 05/29/2018 Noted Allergy Reaction PENICILLINS 02/25/2006 2 - Rash Comments: As a child Date Reviewed: 05/29/2018 Reviewed by: Hafsa (Elizabeth) Bronson - Fully Assessed Reason for Visit: Dizziness [36] Primary Visit Diagnosis:Dizziness [R42] Other Visit Diagnosis:Bilateral impacted cerumen [H61.23] Prescriptions as of 05/29/2018 Sig: ASPIRIN 81 MG TABLET,DELAYED * Take 81 mg by mouth once mariam* LEVOTHYROXINE 88 MCG TABLET Take 1 tablet 6 days a week, * CLINDAMYCIN 1 % TOPICAL GEL Apply to affected area twice* * SPIRONOLACTONE 100 MG TABLET Take 1 tablet by mouth once d* * DAPSONE 5 % TOPICAL GEL Apply to affected area. Problem List As Of Date 05/29/2018 Noted Resolved Allyson's thyroiditis [E06.3] INVALID FOR* Hyperlipidemia [E78.5] INVALID FOR* Encounter Status:Closed by HAFSA DOBSON CNP on 05/29/18 PROGRESS Observed: 04/21/2018 Status: COMPLETED Source: [place] 11:19 AM [facility] REPOSITORY O ID: [id number] Author: Deandre Granger Service: (none) Author Type: Physician Type: Progress Notes Filed: 04/21/2018 11:26 AM Note Text: CC: Eulalia Guerrier is a 52 year old female who presents to the office for physical HPI: Allyson's thyroiditis, some fatigue TSH Date Value Ref Range Status 04/16/2018 3.800 0.400 - 5.500 uU/mL Final Trying to walk regularly without fail at least 400 miles a year. No recent concerns or falls, Occasional left inner thigh discomfort, hx of muscle strain in the past Acne, use of topical and spironolactone per [employer], overall stable. PAST MEDICAL HISTORY Diagnosis Date - ACNE - Allyson's thyroiditis 05/2014 - Hyperlipidemia 2016 PAST SURGICAL HISTORY Procedure Laterality Date - NONE Social History: Social History Substance Use Topics - Smoking status: Never Smoker - Smokeless tobacco: Never Used - Alcohol use No FAMILY HISTORY Problem Relation Age of Onset - Diabetes Mother type 2 - Thyroid Mother - Stroke Mother - other (Crohn's) Sister Current Outpatient prescriptions: levothyroxine (SYNTHROID) 88 mcg tablet Take 1 tablet 6 days a week, take 2 tablets 1 day a week clindamycin (CLEOCIN-T) 1 % gel Apply to affected area twice daily. spironolactone 100 mg ORAL tablet Take 1 tablet by mouth once daily. Dapsone (ACZONE) 5 % TOPICAL Gel Apply to affected area. Allergies: ALLERGIES Allergen Reactions - Penicillins Rash As a child ROS: See HPI PE: 04/21/18 1012 BP: 110/70 Pulse: 64 Resp: 16 Temp: 37 ?C (98.6 ?F) TempSrc: Left Tympanic Weight: 78 kg (172 lb) Height: 162.6 cm (5' 4) Gen: AANDO, NAD, non-toxic appearing, Pleasant, cooperative HEENT: NT/AC, PERRLA, EOMs intact b/l, nares clear and patent b/l, pharynx without erythema, exudate or lesions. Uvula midline. EACs without erythema or debris. TMs pearly hassan with intact landmarks b/l. Neck: supple, No cervical LAD, no thyromegaly, no carotid bruits CV: RRR, normal S1 and S2, no murmurs, no gallops, no rubs, Pulses 2+ and symmetric in UE and LE b/l Lungs: normal respiratory effort, CTA b/l, no wheezing or rhonchi or rales Abd: soft, NT, ND, +BS, no hepatosplenomegaly MS: FROM all 4 extremities Neuro: CN II-XII intact b/l, strength 5/5 b/l UE and LE, DTRs 2/4 UE and LE, sensation intact. Skin: warm, dry, intact, No rashes or lesions on exposed skin. Normal hip range of motion ASSESSMENT/PLAN: 1. Routine physical examination - ICD9: V70.0, ICD10: Z00.00 (primary diagnosis) - Encouraged monthly Breast Self Exam - Recommended calcium intake with supplements or by diet (goal of 3933-1187 mg/day - Follow up for annual exam in one year. 2. Allyson's thyroiditis - ICD9: 245.2, ICD10: E06.3 - recheck labs, increase dose of thyroid medication and recheck labs in 6 weeks - LEVOTHYROXINE 88 MCG TABLET - TSH BLD - THYROID PEROXIDASE ANTIBODY BLOOD - T4 FREE/FREE THYROX 3. Other hyperlipidemia - ICD9: 272.4, ICD10: E78.49 - to be determined upon return of lab results - Encouraged following a low fat, low cholesterol diet. - Discussed the benefits of regular aerobic exercise and weight loss. 4. Visit for screening mammogram - ICD9: V76.12, ICD10: Z12.31 - Encouraged monthly BSE - Increase calcium intake with supplements or by diet (goal of 6870-8536 mg/day - [facility] SCREENING Deandre Granger, DO To ER if develops chest pain, shortness of breath, or severe worsening of symptoms. Discussed risks, benefits, alternatives, and potential side effects of medications. Patient expressed understanding and agreed with the plan. Deandre Granger DO [address] [place] [address] KAREEMOV Observed: 04/21/2018 Status: COMPLETED Source: [place] 10:00 AM [facility] REPOSITORY Office Visit (FAMPWS) EULALIA GUERRIER ([id number]) 1965 F Date Time Provider Department 04/21/18 10:00 AM DEANDRE GRANGER [facility] During your visit today, we recorded the following information about you: Temperature Pulse Respiration Blood pressure 98.6 degrees 64/minute 16/minute 110/70 Weight Height 78 kg 1.626 m Deandre Granger DO 04/21/2018 10:48 AM Signed Deandre Granger DO 04/21/2018 11:26 AM Signed CC: Eulalia Guerrier is a 52 year old female who presents to the office for physical HPI: Allyson's thyroiditis, some fatigue TSH Date Value Ref Range Status 04/16/2018 3.800 0.400 - 5.500 uU/mL Final Trying to walk regularly without fail at least 400 miles a year. No recent concerns or falls, Occasional left inner thigh discomfort, hx of muscle strain in the past Acne, use of topical and spironolactone per [employer] Leader, overall stable. PAST MEDICAL HISTORY Diagnosis Date - ACNE - Allyson's thyroiditis 05/2014 - Hyperlipidemia 2016 PAST SURGICAL HISTORY Procedure Laterality Date - NONE Social History: Social History Substance Use Topics - Smoking status: Never Smoker - Smokeless tobacco: Never Used - Alcohol use No FAMILY HISTORY Problem Relation Age of Onset - Diabetes Mother type 2 - Thyroid Mother - Stroke Mother - other (Crohn's) Sister Current Outpatient prescriptions: levothyroxine (SYNTHROID) 88 mcg tablet Take 1 tablet 6 days a week, take 2 tablets 1 day a week clindamycin (CLEOCIN-T) 1 % gel Apply to affected area twice daily. spironolactone 100 mg ORAL tablet Take 1 tablet by mouth once daily. Dapsone (ACZONE) 5 % TOPICAL Gel Apply to affected area. Allergies: ALLERGIES Allergen Reactions - Penicillins Rash As a child ROS: See HPI PE: 04/21/18 1012 BP: 110/70 Pulse: 64 Resp: 16 Temp: 37 ?C (98.6 ?F) TempSrc: Left Tympanic Weight: 78 kg (172 lb) Height: 162.6 cm (5' 4) Gen: AANDO, NAD, non-toxic appearing, Pleasant, cooperative HEENT: NT/AC, PERRLA, EOMs intact b/l, nares clear and patent b/l, pharynx without erythema, exudate or lesions. Uvula midline. EACs without erythema or debris. TMs pearly hassan with intact landmarks b/l. Neck: supple, No cervical LAD, no thyromegaly, no carotid bruits CV: RRR, normal S1 and S2, no murmurs, no gallops, no rubs, Pulses 2+ and symmetric in UE and LE b/l Lungs: normal respiratory effort, CTA b/l, no wheezing or rhonchi or rales Abd: soft, NT, ND, +BS, no hepatosplenomegaly MS: FROM all 4 extremities Neuro: CN II-XII intact b/l, strength 5/5 b/l UE and LE, DTRs 2/4 UE and LE, sensation intact. Skin: warm, dry, intact, No rashes or lesions on exposed skin. Normal hip range of motion ASSESSMENT/PLAN: 1. Routine physical examination - ICD9: V70.0, ICD10: Z00.00 (primary diagnosis) - Encouraged monthly Breast Self Exam - Recommended calcium intake with supplements or by diet (goal of 4949-2221 mg/day - Follow up for annual exam in one year. 2. Allyson's thyroiditis - ICD9: 245.2, ICD10: E06.3 - recheck labs, increase dose of thyroid medication and recheck labs in 6 weeks - LEVOTHYROXINE 88 MCG TABLET - TSH BLD - THYROID PEROXIDASE ANTIBODY BLOOD - T4 FREE/FREE THYROX 3. Other hyperlipidemia - ICD9: 272.4, ICD10: E78.49 - to be determined upon return of lab results - Encouraged following a low fat, low cholesterol diet. - Discussed the benefits of regular aerobic exercise and weight loss. 4. Visit for screening mammogram - ICD9: V76.12, ICD10: Z12.31 - Encouraged monthly BSE - Increase calcium intake with supplements or by diet (goal of 5696-1877 mg/day - [facility] SCREENING Deandre Granger DO To ER if develops chest pain, shortness of breath, or severe worsening of symptoms. Discussed risks, benefits, alternatives, and potential side effects of medications. Patient expressed understanding and agreed with the plan. Deandre Granger DO [address] [place] [address] Allergies As of Date: 04/21/2018 Noted Allergy Reaction PENICILLINS 02/25/2006 2 - Rash Comments: As a child Date Reviewed: 04/21/2018 Reviewed by: Deandre Granger - Fully Assessed Reason for Visit: Physical [83] Primary Visit Diagnosis:Routine physical examination [Z00.00] Other Visit Diagnoses:Allyson's thyroiditis [E06.3] Other hyperlipidemia [E78.49] Visit for screening mammogram [Z12.31] Order(s):[facility] SCREENING [[id number]] Order #: [id number] FUTURE levothyroxine (SYNTHROID) 88 mcg tabletTake 1 tablet 6 days a week, take 2 tablets 1 day a weekDisp: 102 tabletRfl: 3 TSH BLD [SQTSH] Order #: [id number] FUTURE THYROID PEROXIDASE ANTIBODY BLOOD [SQMICRO] Order #: [id number] FUTURE T4 FREE/FREE THYROX [SQFT4] Order #: [id number] FUTURE Prescriptions as of 04/21/2018 Sig: LEVOTHYROXINE 88 MCG TABLET Take 1 tablet 6 days a week, * CLINDAMYCIN 1 % TOPICAL GEL Apply to affected area twice* * SPIRONOLACTONE 100 MG TABLET Take 1 tablet by mouth once d* * DAPSONE 5 % TOPICAL GEL Apply to affected area. Problem List As Of Date 04/21/2018 Noted Resolved Allyson's thyroiditis [E06.3] INVALID FOR* Hyperlipidemia [E78.5] INVALID FOR* Other instructions from your clinician: Prescriptions ordered this encounter Disp Refills Start End LEVOTHYROXINE 88 MCG TABLET 102 * 3 04/21/2018 Sig: Take 1 tablet 6 days a week, take 2 tablets 1 day a week Medications Discontinued During This Encounter levothyroxine (SYNTHROID) 88 mcg tab* 90 t* 1 11/19/2017 04/21/2018 Sig: TAKE 1 TABLET DAILY Disc: Reason for discontinue is not on file. Annotated image of FAMP PATELLOFEMORAL PAIN SYNDROME (RUNNER'S KNEE) PG2 last updated by Deandre Granger on 04/21/2018 10:48 AM Annotated image of FAMP PATELLOFEMORAL PAIN SYNDROME (RUNNER'S KNEE) PG3 last updated by Deandre Granger on 04/21/2018 10:48 AM Encounter Status:Closed by DEANDRE GRANGER DO on 04/21/18 LIPID PANEL, BASIC Collected: 04/16/2018 Status: F Source: [place] 8:42 AM [facility] RE[facility] TYPE CODE TESTS RESULT OUT OF REFERENCE UNITS RANGE LAB CHOL <200 mg/dL Cholesterol High 200 Result Comment: <200 mg/dL, Desirable 200-239 mg/dL, Borderline high >239 mg/dL, High LAB TRIGLY <150 mg/dL Triglyceride 109 Result Comment: <150 mg/dL, Normal 150-199 mg/dL, Borderline high 200-499 mg/dL, High >499 mg/dL, Very high LAB HDL >39 mg/dL HDL-Cholesterol 51 Result Comment: 40-59 mg/dL, Acceptable >59 mg/dL, High: Negative risk factor for coronary heart disease <40 mg/dL, Low: Positive risk factor for coronary heart disease LAB LDL <100 mg/dL LDL-Cholesterol High 127 Result Comment: <100 mg/dL, Optimal 100-129 mg/dL, Near optimal/above optimal 130-159 mg/dL, Borderline high 160-189 mg/dL, High >189 mg/dL, Very high Secondary prevention optimal LDL Cholesterol levels are recommended to be < 70 mg/dL LAB NONHDL <130 mg/dL Non HDL High Cholesterol 149 Result Comment: <130 mg/dL, Optimal 130-159 mg/dL, Near optimal/above optimal 160-189 mg/dL, Borderline high 190-219 mg/dL, High >219 mg/dL, Very high Secondary prevention optimal non HDL Cholesterol levels are recommended to be < 100 mg/dL LAB FT hrs Fasting Time 13 LAB VLDL <30 mg/dL VLDL Cholesterol 22 LAB TCHDL <5.10 TC:HDL Ratio 3.92 LAB LDLHDL <2.54 LDL:HDL Ratio 2.49 Result Comment: Reference: 1. National Cholesterol Education Program ATP III Guideline At-A-Glance Quick Desk Reference: National Heart, Lung, and Blood [place]. National Institutes of Health. 2001: NIH Publication No. 01-3305. 2. An International Atherosclerosis Society position paper: global recommendations for the management of dyslipidemia: executive summary, Atherosclerosis. 2014: 232(2):410-413. Performed By: #### LIPB, TSH #### [facility] [employer] [address] [place], [place] [address] TSH Collected: 04/16/2018 Status: F Source: [place] 8:42 AM [facility] REPOSITORY TYPE CODE TESTS RESULT OUT OF RANGE REFERENCE UNITS LAB TSH 0.400-5.500 uU/mL TSH 3.800 Performed By: #### LIPB, TSH #### [facility] [employer] [address] [place], [place] [address] CNPTOUTREACH Observed: 04/06/2018 Status: COMPLETED Source: [place] 12:00 AM [facility] REPOSITORY Patient Outreach ([facility]) EULALIA GUERRIER ([id number]) 1965 F Date Time Provider Department 04/06/18 [facility] During your visit today, we recorded the following information about you: Allergies As of Date: 04/06/2018 Noted Allergy Reaction PENICILLINS 02/25/2006 2 - Rash Comments: As a child Date Reviewed: 03/25/2017 Reviewed by: Lulu Veras (Dave) ELIZABETH Ramos - Fully Assessed Visit Diagnosis:Medication management [Z79.899] Order(s):TSH BLD [SQTSH] Order #: [id number] FUTURE LIPID PANEL BASIC [SQLIPB] Order #: [id number] FUTURE Prescriptions as of 04/06/2018 Sig: X LEVOTHYROXINE 88 MCG TABLET TAKE 1 TABLET DAILY CLINDAMYCIN 1 % TOPICAL GEL Apply to affected area twice* * SPIRONOLACTONE 100 MG TABLET Take 1 tablet by mouth once d* * DAPSONE 5 % TOPICAL GEL Apply to affected area. Problem List As Of Date 04/06/2018 Noted Resolved Allyson's thyroiditis [E06.3] INVALID FOR* Hyperlipidemia [E78.5] INVALID FOR* Encounter Status:Closed by CHARIS MONTIEL on 05/07/18 ALLERGIES ALLERGIES DATE TYPE / CODE NAME / CODE REACTION SEVERITY SOURCE 05/29/2018 Drug Penicillins/[id number] Rash Unknown [place] Allergy/416 0476(RXNORM) [facility] [id number]([facility] ED CT) Repository 02/25/2006 Drug PENICILLINS RASH [facility] Class/[address] [place] [address]([facility] CT) ENCOUNTERS ENCOUNTERS ADMIT/DISCHARGE ACCOUNT ADMITTING ENCOUNTER LOCATION SOURCE NUMBER CLASS 05/29/2018/05/29/20 [id number] Emergency [address] ing:ED Repository 05/29/2018/05/31/20 [id number] Ambulatory [address] Repository 04/21/2018/04/23/20 [id number] Ambulatory [address] Repository 04/16/2018/04/16/20 [id number] Ambulatory [address] Repository PAYERS PAYERS ENCOUNTER GUARANTOR PAYER SUBSCRIBER SOURCE 05/29/2018 CARLOS ALBERTO Primary Carlos Alberto Morse [id number] Insurance:MEDICAL OdenkirkDOB: [facility] [id number] Number: Repository [id number]: [phone] [id number] [phone] () Date:[id number] [address] [place] [id number]: 05/29/2018 Secondary NOT GIVENUNK [place] Insurance:SELF PAY [facility] Number: Effective Repository Date:2018-05-29
== END 2018-05-29 18:21 | disposition home or self-care (01) ==
PROVIDERS: Emergency Provider Emergency Medicine; Family Provider Student in an Organized Health Care Education/Training Program; PCP Student in an Organized Health Care Education/Training Program
DX: R42 Dizziness and giddiness (principal); E03.9 Hypothyroidism, unspecified; Z79.82 Long term (current) use of aspirin; Z79.899 Other long term (current) drug therapy
CPT/HCPCS: 70450; 70544; 70549; 70551; 71045; 80048; 84484; 85025; 93005; 99285; A9585; A4216